=== PATIENT | male | born 1945 | race Caucasian/White ===

== ENCOUNTER 2019-03-14 16:39 | Emergency (ER) | payer OTHER ==
--- NOTE | 2019-03-14 17:01 | PDOC ---
History of Present Illness - General Chief Complaint: Respiratory Stated Complaint: FLU LIKE ILLNESS Time Seen by Provider: 03/14/19 16:46 History Source: Patient Exam Limitations: No Limitations - History of Present Illness Initial Comments: 03/14/19 16:55 HPI 73 YOM with h.o HTN, HLD, CAD s/p PCI, gout, arthritis presenting with nasal congestion and cough x 2-3 days, a/w dizziness, generalized weakness, subjective fevers/chills, sweats, body aches and nausea. has been taking tylenol, last dose about 2 hours ago; after antipyretics, he breaks out in a sweat, has not taken his temperature. +sick contacts, daughters with flu-like illness and may have contracted from them living with him and coming in close contact. Denies syncope, ear pain/sore throat, visual or hearing disturbances, chest pain , SOB, palpitation, V, D, abdominal pain, bladder and bowel problems, focal weakness/paresthesias, leg swelling/pain, rash. No travel. No new changes in medications. No suspicious food intake He did receive flu vaccine this season. Allergies: None Past Medical History: HTN, HLD, CAD s/p PCI, gout, arthritis PSH: PCI Social history: Lives with family. No tobacco, ETOH or drug use. Meds: as documented in EMR Family history: noncontributory Review of systems Constitutional: +subjective fevers and chills. +malaise, +sweats HEENT: +dizziness, +nasal congestion, no headache No visual/hearing disturbances. no ear pain/no sore throat. no neck pain CVS: no cp or syncope. Resp: no sob. + cough. Gastrointestinal: no abdominal pain, vomiting, diarrhea. +nausea MUSCULOSKELETAL: No joint pain and swelling. No neck or back pain. +myalgias. SKIN: no redness or skin changes, no discharge, no rash. No wounds. Hematologic: no easy bruising/bleeding. NEUROLOGIC: No headache, LOC or altered mental status. No weakness, numbness or tingling. Psych: no anxiety or depression Allergic/Immunologic: no allergies All other systems reviewed and negative, or as documented in HPI. Physical exam General: Well appearing, awake and alert, NAD. HEENT: NCAT, PERRL, EOMI, clear conjunctiva, anicteric, moist mucus membranes, clear oropharynx, no oral lesions.. Neck: neck supple, FROM Resp: CTAB, normal and even respirations, no respiratory distress CVS: RRR, no murmurs, 2+ peripheral pulses throughout, no peripheral edema Abdomen: soft, NTND, no rebound or guarding. Back: nontender, normal inspection and ROM MSK: no edema, SAHNI x4, ROM intact. No clubbing or cyanosis. normal bulk and tone. Extremities: no calf tenderness Neuro: alert, oriented appropriately; no focal neurologic deficits Psych: Calm and cooperative Skin: cool skin, moist. cap refill <2 sec, normal color, no rash or skin discoloration. 03/14/19 20:05 Past History - Past Medical History Allergies/Adverse Reactions: Allergies Allergy/AdvReac Type Severity Reaction Status Date / Time No Known Allergies Allergy Verified 03/14/19 16:45 Home Medications: Ambulatory Orders Allopurinol 300 mg PO DAILY PRN 03/14/19 Benzonatate [Tessalon Pearls -] 100 mg PO TID PRN #12 capsule 03/14/19 Metoprolol Succinate [Toprol Xl] 100 mg PO DAILY 03/14/19 Oseltamivir Phosphate [Tamiflu -] 75 mg PO BID #10 capsule 03/14/19 Rosuvastatin Calcium [Crestor] 10 mg PO DAILY 03/14/19 Verapamil HCl ER [Calan Sr] 240 mg PO DAILY 03/14/19 ED Treatment Course - RADIOLOGY Radiology Studies Ordered: Category Date Time Status CHEST PA & LAT [RAD] Stat Radiology 03/14/19 16:46 Ordered Radiograph Interpretation: 03/14/19 17:52 Chest Xray Interpreted by ED Physician: CXR (2 view): no acute abnormality: no infiltrates , bones appear intact and structures normal alignment, cardiac silhouette within normal limits. no free air under diaphragm, no pneumothorax. Medical Decision Making - Medical Decision Making 03/14/19 17:00 Vital Signs Temp Pulse Resp BP Pulse Ox 98.7 F 85 16 116/76 95 03/14/19 16:44 03/14/19 16:44 03/14/19 16:44 03/14/19 16:44 03/14/19 16:44 VS reviewed, wnl. afebrile, no tachy. normal sats/respirations no respiratory distress ddx, influenza, viral illness, bronchitis, URI, pleurisy doubt cardiac, no cp or sob breathing comfortably VS reviewed, wnl. no fever, normal sats. normotensive flu swab, likely milder sx after vaccination. cxr clear, no pna, pleural thickening, incidental and outpatient followup. given analgesia, oral hydration rx tessalon perles, suppportive care/measures, tea/teresa, lemon, honey. flu test positive, given time frame and risk factors, age >70, will rx tamiflu side effect profile discussed including GI side effects called over phone with results, rx sent over x 5 day course c/w supportive care measures, antipyretics, rest and hydration, tamiflu rx, close contact precautions. DC stable condition, return precautions. 03/14/19 20:02 03/14/19 20:04 Discharge - Discharge Information Problems reviewed: Yes Clinical Impression/Diagnosis: Influenza Upper respiratory infection Qualifiers: URI type: unspecified URI Qualified Code(s): J06.9 - Acute upper respiratory infection, unspecified Condition: Good Disposition: HOME - Admission No - Additional Discharge Information Prescriptions: Benzonatate [Tessalon Pearls -] 100 mg PO TID PRN #12 capsule PRN Reason: Cough Oseltamivir Phosphate [Tamiflu -] 75 mg PO BID #10 capsule - Follow up/Referral Referrals: Shelby Wsetfall MD [Primary Care Provider] - - Patient Discharge Instructions Patient Printed Discharge Instructions: DI for Viral Upper Respiratory Infection -- Adult, DI for Influenza -- Adult, DI for Viral Syndrome Additional Instructions: RESPIRATORY precautions salt water gargles, 1-2 spoonful of honey and warm lemon tea is appropriate as well for soothing qualities for sore throat/cough. minimize spread of infection given contagious nature, and cover your mouth and wash your hands adequately with soap and water. Stay well hydrated and rest. Cool air - walk around outdoors in the evening. May also try hot shower steam. This can alleviate the congestion and cough. You can also use Riccola - dual action with lemon/honey to soothe your throat and cough. May use the albuterol inhaler every 4-6 hours as needed for cough and breathing to clear up your airways. Return precautions include respiratory distress, difficulty breathing, cyanosis , chest pain, lethargy, confusion, dehydration, high fevers or pain. you will get a call with your flu results [phone] - Post Discharge Activity
[2019-03-14 17:18] VITALS: BP 116/76; PULSE 85; TEMP 98.7; BMI 27.3
== END 2019-03-14 19:00 | disposition home or self-care (01) ==
LOC: FER 16:39
DX: J11.1 Influenza due to unidentified influenza virus with other respiratory manifestations (principal); J06.9 Acute upper respiratory infection, unspecified
CPT/HCPCS: 71046-TC-FY; 87804; 99281-25

== ENCOUNTER 2021-10-20 13:46 | Inpatient (IN) | payer OTHER ==
[2021-10-20] MEDS ORDERED: ONDANSETRON 4 MG/2 ML VIAL IVPUSH ONE ×2 (14:19→20:00)
[2021-10-20] MEDS ORDERED: SODIUM CHLORIDE 0.9% 500 ML INFUS.BAG IV ONE (14:19)
[2021-10-20] MEDS ORDERED: ONDANSETRON 4 MG/2 ML VIAL ONE ×2 (14:23→20:01)
[2021-10-20 15:20] LABS: INR 1.09 (0.83-1.09); PROTHROMBIN TIME (PATIENT) 12.6 SEC (9.7-13.0)
[2021-10-20 15:22] LABS: ACTIVATED PTT 29.9 SECONDS (25.2-36.5); CALCIUM 8.5 mg/dL (8.5-10.1); MAGNESIUM 1.8 mg/dL (1.8-2.4)
[2021-10-20 15:23] LABS: BASO % 0.6 % (0-2.0); BLOOD UREA NITROGEN 20.9 mg/dL (7-18); EOS % 1.6 % (0-4.5); HEMOGLOBIN 11.2 GM/dL (11.7-16.9); LYMPH % 11.7 % (8-40); MCH 25.9 pg (25.7-33.7); MCHC 31.9 g/dl (32.0-35.9); MEAN CELL VOLUME 81.4 fl (80-96); MEAN PLT VOLUME 7.3 fl (7.5-11.1); MONO % 13.3 % (3.8-10.2); NEUT % 72.8 % (42.8-82.8); PLATELET COUNT 389 10^3/uL (134-434); RBC 4.31 M/mm3 (4.00-5.60); RDW 18.7 % (11.9-15.9); WHITE BLOOD COUNT 14.9 K/mm3 (4.0-10.0)
[2021-10-20 15:25] LABS: CREATININE 1.4 mg/dL (0.55-1.3)
[2021-10-20 15:27] LABS: BILIRUBIN,TOTAL 0.4 mg/dL (0.2-1)
[2021-10-20 17:24] LABS: CALCIUM 7.8 mg/dL (8.5-10.1); MAGNESIUM 1.9 mg/dL (1.8-2.4)
[2021-10-20 17:25] LABS: BLOOD UREA NITROGEN 21.6 mg/dL (7-18)
[2021-10-20 17:28] LABS: CREATININE 1.4 mg/dL (0.55-1.3)
[2021-10-20 17:29] LABS: URINE APPEARANCE CLEAR; URINE BILIRUBIN NEGATIVE (NEGATIVE); URINE COLOR YELLOW; URINE GLUCOSE (UA) NEGATIVE (NEGATIVE); URINE KETONE TRACE (NEGATIVE); URINE LEUK ESTERASE NEGATIVE (NEGATIVE); URINE NITRITE NEGATIVE (NEGATIVE); URINE PROTEIN NEGATIVE (NEGATIVE); URINE UROBILINOGEN 0.2 mg/dL (0.2-1.0)
[2021-10-20] MEDS ORDERED: PIPERACILLIN/TAZOB 4.5 GM 4.5 GM in DEXTROSE 5%-WATER 100 ML IVPB ONE (19:44)
[2021-10-20] MEDS ORDERED: PIPERACILLIN/TAZOB 4.5 GM 4.5 GM/100 ML BAG IVPB ONE (19:49)
[2021-10-20] MEDS ORDERED: ONDANSETRON 4 MG/2 ML VIAL IVPUSH PRN (22:23)
[2021-10-21] MEDS: SODIUM CHLORIDE 1,000 ML IV SCH ×3 (01:24→22:27)
[2021-10-21] MEDS: PIPERACILLIN/TAZOB 3.375 GM 3.375 GM in DEXTROSE 5%-WATER - 50 ML IVPB SCH ×2 (03:20→11:21)
[2021-10-21 09:48] LABS: HEMATOCRIT 27.7 % (35.4-49); HEMOGLOBIN 9.3 GM/dL (11.7-16.9); MCH 27.3 pg (25.7-33.7); MCHC 33.7 g/dl (32.0-35.9); MEAN CELL VOLUME 80.8 fl (80-96); MEAN PLT VOLUME 6.5 fl (7.5-11.1); PLATELET COUNT 323 10^3/uL (134-434); RBC 3.43 M/mm3 (4.00-5.60); RDW 18.8 % (11.9-15.9); WHITE BLOOD COUNT 9.6 K/mm3 (4.0-10.0)
[2021-10-21 09:54] LABS: RETICULOCYTES 1.44 % (0.5-1.5)
[2021-10-21 10:11] LABS: CALCIUM 7.6 mg/dL (8.5-10.1)
[2021-10-21 10:12] LABS: ALBUMIN 1.6 g/dl (3.4-5.0); BLOOD UREA NITROGEN 20.4 mg/dL (7-18); MAGNESIUM 1.9 mg/dL (1.8-2.4)
[2021-10-21 10:14] LABS: CREATININE 1.5 mg/dL (0.55-1.3)
[2021-10-21 10:15] LABS: PHOSPHOROUS 2.5 mg/dL (2.5-4.9)
[2021-10-21 10:16] LABS: BILIRUBIN,TOTAL 0.3 mg/dL (0.2-1); TOT PROT 4.8 g/dl (6.4-8.2)
[2021-10-21] MEDS: CEFTRIAXONE 1 GM in DEXTROSE 5%-WATER - 50 ML IVPB SCH (12:48)
[2021-10-21] MEDS ORDERED: IRON SUCROSE INJECTION 200 MG in SODIUM CHLORIDE 90 ML IVPB ONE (14:43)
[2021-10-21] MEDS ORDERED: PIPERACILLIN/TAZOB 3.375 GM 3.375 GM in DEXTROSE 5%-WATER - 50 ML IVPB SCH (15:00)
[2021-10-21] MEDS: ASPIRIN 81 MG CHEWABLE TABLETS PO SCH (17:36)
[2021-10-21] MEDS: ROSUVASTATIN CA 10 MG TABLET PO SCH (22:27)
[2021-10-22 10:09] LABS: BASO % 1.3 % (0-2.0); EOS % 11.1 % (0-4.5); HEMATOCRIT 28.4 % (35.4-49); HEMOGLOBIN 9.1 GM/dL (11.7-16.9); LYMPH % 16.4 % (8-40); MCH 26.3 pg (25.7-33.7); MCHC 32.1 g/dl (32.0-35.9); MEAN CELL VOLUME 81.8 fl (80-96); MEAN PLT VOLUME 7.1 fl (7.5-11.1); MONO % 19.2 % (3.8-10.2); PLATELET COUNT 288 10^3/uL (134-434); RBC 3.48 M/mm3 (4.00-5.60); RDW 18.7 % (11.9-15.9); WHITE BLOOD COUNT 5.9 K/mm3 (4.0-10.0)
[2021-10-22] MEDS ORDERED: ACETAMINOPHEN 1000 MG/100 ML BAG IVPB PRN (10:24)
[2021-10-22] MEDS: CEFTRIAXONE 1 GM in DEXTROSE 5%-WATER - 50 ML IVPB SCH (10:26)
[2021-10-22] MEDS: CYANOCOBALAMIN 1,000 MCG TABLET (FP) PO SCH (10:26)
[2021-10-22] MEDS: VERAPAMIL HCL 240 MG E.R. TABLET PO SCH (10:26)
[2021-10-22] MEDS: ASPIRIN 81 MG CHEWABLE TABLETS PO SCH (10:26)
[2021-10-22] MEDS: FAMOTIDINE 20 MG TABLET PO SCH (10:26)
[2021-10-22] MEDS ORDERED: IRON SUCROSE INJECTION 200 MG in SODIUM CHLORIDE 90 ML IVPB ONE (10:30)
[2021-10-22 10:37] LABS: BLOOD UREA NITROGEN 11.8 mg/dL (7-18)
[2021-10-22 10:40] LABS: CALCIUM 7.6 mg/dL (8.5-10.1); MAGNESIUM 1.9 mg/dL (1.8-2.4)
[2021-10-22 10:41] LABS: CREATININE 1.1 mg/dL (0.55-1.3); PHOSPHOROUS 2.2 mg/dL (2.5-4.9)
[2021-10-22 14:56] VITALS: BMI 24.4
[2021-10-22] MEDS ORDERED: POTASSIUM PHOSPHATE 15 MM in DEXTROSE 5%-WATER - 250 ML IVPB ONE (19:30)
[2021-10-22] MEDS: ROSUVASTATIN CA 10 MG TABLET PO SCH (22:00)
[2021-10-23 08:13] LABS: BASO % 0.9 % (0-2.0); EOS % 13.8 % (0-4.5); HEMATOCRIT 28.2 % (35.4-49); HEMOGLOBIN 8.9 GM/dL (11.7-16.9); LYMPH % 17.7 % (8-40); MCH 26.1 pg (25.7-33.7); MCHC 31.6 g/dl (32.0-35.9); MEAN CELL VOLUME 82.8 fl (80-96); MEAN PLT VOLUME 6.9 fl (7.5-11.1); MONO % 14.9 % (3.8-10.2); NEUT % 52.7 % (42.8-82.8); PLATELET COUNT 263 10^3/uL (134-434); RBC 3.41 M/mm3 (4.00-5.60); RDW 18.9 % (11.9-15.9)
[2021-10-23 08:34] LABS: CALCIUM 7.6 mg/dL (8.5-10.1)
[2021-10-23 08:35] LABS: BLOOD UREA NITROGEN 9.2 mg/dL (7-18); MAGNESIUM 1.8 mg/dL (1.8-2.4)
[2021-10-23 08:38] LABS: PHOSPHOROUS 2.4 mg/dL (2.5-4.9)
[2021-10-23] MEDS ORDERED: IRON SUCROSE INJECTION 200 MG in SODIUM CHLORIDE 90 ML IVPB ONE (08:55)
[2021-10-23] MEDS: ASPIRIN 81 MG CHEWABLE TABLETS PO SCH (10:25)
[2021-10-23] MEDS: CYANOCOBALAMIN 1,000 MCG TABLET (FP) PO SCH (10:25)
[2021-10-23] MEDS: FAMOTIDINE 20 MG TABLET PO SCH (10:25)
[2021-10-23] MEDS: VERAPAMIL HCL 240 MG E.R. TABLET PO SCH (10:25)
[2021-10-23] MEDS: POLYETHYLENE GLYCOL (HEALTHYLAX) 3350 17 GM PACKET PO SCH (10:25)
[2021-10-23] MEDS: CEFTRIAXONE 1 GM in DEXTROSE 5%-WATER - 50 ML IVPB SCH (11:24)
[2021-10-23] MEDS ORDERED: NAPH,MB-DB/K PH,MBDB POWDER PACKET PO ONE (16:43)
[2021-10-23] MEDS: ROSUVASTATIN CA 10 MG TABLET PO SCH (22:45)
[2021-10-24 08:06] LABS: CARCINOEMBRYONIC ANTIGEN 3.6 ng/mL (0.0-4.7)
[2021-10-24 10:27] LABS: BASO % 1.3 % (0-2.0); EOS % 8.9 % (0-4.5); HEMATOCRIT 31.4 % (35.4-49); HEMOGLOBIN 10.4 GM/dL (11.7-16.9); LYMPH % 12.7 % (8-40); MCH 26.8 pg (25.7-33.7); MEAN CELL VOLUME 81.1 fl (80-96); MEAN PLT VOLUME 6.7 fl (7.5-11.1); MONO % 12.4 % (3.8-10.2); NEUT % 64.7 % (42.8-82.8); PLATELET COUNT 302 10^3/uL (134-434); RBC 3.86 M/mm3 (4.00-5.60); RDW 18.5 % (11.9-15.9); WHITE BLOOD COUNT 9.9 K/mm3 (4.0-10.0)
[2021-10-24 10:39] LABS: CALCIUM 7.7 mg/dL (8.5-10.1)
[2021-10-24 10:40] LABS: BLOOD UREA NITROGEN 7.8 mg/dL (7-18); MAGNESIUM 1.9 mg/dL (1.8-2.4)
[2021-10-24 10:43] LABS: CREATININE 1.1 mg/dL (0.55-1.3)
[2021-10-24] MEDS: CYANOCOBALAMIN 1,000 MCG TABLET (FP) PO SCH (10:45)
[2021-10-24] MEDS: CEFTRIAXONE 1 GM in DEXTROSE 5%-WATER - 50 ML IVPB SCH (10:45)
[2021-10-24] MEDS: ASPIRIN 81 MG CHEWABLE TABLETS PO SCH (10:45)
[2021-10-24] MEDS: FAMOTIDINE 20 MG TABLET PO SCH (10:45)
[2021-10-24] MEDS: VERAPAMIL HCL 240 MG E.R. TABLET PO SCH (10:45)
[2021-10-24] MEDS: POLYETHYLENE GLYCOL (HEALTHYLAX) 3350 17 GM PACKET PO SCH (10:46)
[2021-10-24 12:51] VITALS: RESP 16
[2021-10-24 15:25] VITALS: BP 94/51; PULSE 57; TEMP 98.4
[2021-10-24] MEDS: POTASSIUM PHOSPHATE 30 MM in SODIUM CHLORIDE 500 ML IVPB ONE ×2 (16:28→17:42)
[2021-10-24] MEDS ORDERED: NAPH,MB-DB/K PH,MBDB POWDER PACKET PO ONE (17:04)
== END 2021-10-24 19:38 | disposition home or self-care (01) | DRG 392 ==
LOC: JER 13:46 → JERBED 20:26 → J8W 10-21 02:01
PROVIDERS: ADMIT Hospitalist; ATTEND Internal Medicine
DX: K57.92 Diverticulitis of intestine, part unspecified, without perforation or abscess without bleeding (principal); I25.10 Atherosclerotic heart disease of native coronary artery without angina pectoris; E78.5 Hyperlipidemia, unspecified; R63.4 Abnormal weight loss; Z68.24 Body mass index [BMI] 24.0-24.9, adult; E86.0 Dehydration; I10 Essential (primary) hypertension; M10.9 Gout, unspecified; K63.9 Disease of intestine, unspecified; D50.9 Iron deficiency anemia, unspecified; R11.2 Nausea with vomiting, unspecified; R16.0 Hepatomegaly, not elsewhere classified; Z95.5 Presence of coronary angioplasty implant and graft; I70.1 Atherosclerosis of renal artery; N28.9 Disorder of kidney and ureter, unspecified
CPT/HCPCS: 0241U-QW; 36415; 71045-TC-FY; 74019-TC-FY; 74177-TC; 80048; 80053; 81003; 82272; 82378; 82607; 82728; 82746; 83540; 83550; 83605; 83615; 83690; 83735; 84100; 85025; 85027; 85045; 85610; 85730; 86140; 86301; 87045; 87046; 87086; 87205; 87209; 87324; 87449; 93005; 93010; 99285-25; J1756

== ENCOUNTER 2021-10-31 14:03 | Emergency (ER) | payer SELFPAY ==
[2021-10-31 14:17] VITALS: RESP 18; TEMP 97.5; BMI 23.4
[2021-10-31] MEDS ORDERED: SODIUM CHLORIDE 0.9% 500 ML INFUS.BAG IV ONE (15:27)
[2021-10-31 17:43] LABS: BASO % 1.2 % (0-2.0); EOS % 6.6 % (0-4.5); HEMATOCRIT 33.5 % (35.4-49); HEMOGLOBIN 10.7 GM/dL (11.7-16.9); LYMPH % 17.9 % (8-40); MCH 26.9 pg (25.7-33.7); MCHC 31.9 g/dl (32.0-35.9); MEAN CELL VOLUME 84.3 fl (80-96); MEAN PLT VOLUME 7.4 fl (7.5-11.1); MONO % 10.1 % (3.8-10.2); NEUT % 64.2 % (42.8-82.8); PLATELET COUNT 485 10^3/uL (134-434); RBC 3.97 M/mm3 (4.00-5.60); RDW 21.6 % (11.9-15.9); WHITE BLOOD COUNT 8.1 K/mm3 (4.0-10.0)
[2021-10-31 17:54] LABS: BLOOD UREA NITROGEN 7.6 mg/dL (7-18); CALCIUM 8.6 mg/dL (8.5-10.1)
[2021-10-31 17:58] LABS: CREATININE 1.1 mg/dL (0.55-1.3)
[2021-10-31 17:59] LABS: BILIRUBIN,TOTAL 0.6 mg/dL (0.2-1); TOT PROT 5.9 g/dl (6.4-8.2)
[2021-10-31 18:07] LABS: ALBUMIN 2.2 g/dl (3.4-5.0)
[2021-10-31 19:15] VITALS: BP 140/68; PULSE 70
== END 2021-10-31 19:16 | disposition home or self-care (01) ==
LOC: JER 14:03
DX: R11.0 Nausea (principal)
CPT/HCPCS: 36415; 80053; 85025; 86850; 86900; 86901; 93005; 93010; 99283-25

== ENCOUNTER 2022-01-31 21:59 | Inpatient (IN) | payer OTHER ==
[2022-01-31] MEDS ORDERED: ACETAMINOPHEN 1000 MG/100 ML BAG IVPB ONE (23:05)
[2022-01-31] MEDS ORDERED: ACETAMINOPHEN INJECTION 100 ML IVPB ONE (23:11)
[2022-01-31 23:25] LABS: HEMOGLOBIN 10.3 GM/dL (11.7-16.9); MCH 27.6 pg (25.7-33.7); MCHC 31.2 g/dl (32.0-35.9); MEAN CELL VOLUME 88.7 fl (80-96); MEAN PLT VOLUME 7.1 fl (7.5-11.1); PLATELET COUNT 424 10^3/uL (134-434); RBC 3.72 M/mm3 (4.00-5.60); RDW 17.7 % (11.9-15.9); WHITE BLOOD COUNT 19.4 K/mm3 (4.0-10.0)
[2022-01-31 23:50] LABS: LACTIC ACID 5.3 mmol/L (0.4-2.0)
[2022-01-31] MEDS ORDERED: SODIUM CHLORIDE 0.9% 500 ML INFUS.BAG IV ONE (23:51)
[2022-01-31 23:53] LABS: BLOOD UREA NITROGEN 20.2 mg/dL (7-18); CALCIUM 8.1 mg/dL (8.5-10.1)
[2022-01-31] MEDS ORDERED: PIPERACILLIN/TAZOB 4.5 GM 4.5 GM in DEXTROSE 5%-WATER 100 ML IVPB ONE (23:55)
[2022-01-31 23:57] LABS: CREATININE 1.3 mg/dL (0.55-1.3)
[2022-01-31 23:58] LABS: BILIRUBIN,TOTAL 0.3 mg/dL (0.2-1); TOT PROT 5.4 g/dl (6.4-8.2)
[2022-02-01] MEDS ORDERED: PIPERACILLIN/TAZOB 4.5 GM 4.5 GM/100 ML BAG IVPB ONE (00:17)
[2022-02-01] MEDS ORDERED: SODIUM CHLORIDE 0.9% 1000 ML INFUS.BAG IV ONE (00:51)
[2022-02-01 01:35] LABS: HEMATOCRIT 28.1 % (35.4-49); HEMOGLOBIN 8.8 GM/dL (11.7-16.9); MCH 27.5 pg (25.7-33.7); MCHC 31.5 g/dl (32.0-35.9); MEAN CELL VOLUME 87.3 fl (80-96); MEAN PLT VOLUME 6.9 fl (7.5-11.1); PLATELET COUNT 318 10^3/uL (134-434); RBC 3.21 M/mm3 (4.00-5.60); RDW 17.2 % (11.9-15.9); WHITE BLOOD COUNT 18.9 K/mm3 (4.0-10.0)
[2022-02-01 01:36] LABS: INR 1.05 (0.83-1.09); PROTHROMBIN TIME (PATIENT) 12.1 SEC (9.7-13.0)
[2022-02-01 01:39] LABS: ACTIVATED PTT 23.3 SECONDS (25.2-36.5)
[2022-02-01 04:34] LABS: ANISOCYTOSIS 1+; MACROCYTOSIS 0; OVALOCYTE 2+; TEAR DROP CELLS 1+
[2022-02-01 04:50] LABS: ANISOCYTOSIS 2+; MACROCYTOSIS 0; OVALOCYTE 1+; TEAR DROP CELLS 1+
[2022-02-01 07:55] LABS: URINE APPEARANCE CLEAR; URINE BILIRUBIN NEGATIVE (NEGATIVE); URINE COLOR YELLOW; URINE GLUCOSE (UA) NEGATIVE (NEGATIVE); URINE KETONE NEGATIVE (NEGATIVE); URINE LEUK ESTERASE NEGATIVE (NEGATIVE); URINE NITRITE NEGATIVE (NEGATIVE); URINE PROTEIN NEGATIVE (NEGATIVE); URINE UROBILINOGEN 0.2 mg/dL (0.2-1.0)
[2022-02-01] MEDS ORDERED: CEFTRIAXONE 1 GM/50 ML BAG ONE (10:09)
[2022-02-01] MEDS ORDERED: PANTOPRAZOLE SODIUM 40 MG/100 ML BAG IVPB ONE (10:09)
[2022-02-01] MEDS: VERAPAMIL HCL 240 MG E.R. TABLET PO SCH (10:14)
[2022-02-01] MEDS: PANTOPRAZOLE SODIUM 40 MG VIAL IVPUSH SCH ×2 (10:20→21:59)
[2022-02-01] MEDS: CEFTRIAXONE 1 GM in DEXTROSE 5%-WATER - 50 ML IVPB SCH (12:05)
[2022-02-01 13:31] LABS: BASO % 0.3 % (0-2.0); EOS % 2.9 % (0-4.5); HEMATOCRIT 37.2 % (35.4-49); HEMOGLOBIN 11.9 GM/dL (11.7-16.9); LYMPH % 7.6 % (8-40); MCH 27.6 pg (25.7-33.7); MCHC 31.9 g/dl (32.0-35.9); MEAN CELL VOLUME 86.5 fl (80-96); MEAN PLT VOLUME 6.7 fl (7.5-11.1); MONO % 6.7 % (3.8-10.2); NEUT % 82.5 % (42.8-82.8); PLATELET COUNT 281 10^3/uL (134-434); RDW 16.2 % (11.9-15.9); WHITE BLOOD COUNT 12.2 K/mm3 (4.0-10.0)
[2022-02-01 13:39] LABS: INR 0.99 (0.83-1.09); PROTHROMBIN TIME (PATIENT) 11.4 SEC (9.7-13.0)
[2022-02-01 13:53] LABS: ALBUMIN 1.9 g/dl (3.4-5.0); BLOOD UREA NITROGEN 15.8 mg/dL (7-18); MAGNESIUM 1.8 mg/dL (1.8-2.4)
[2022-02-01 13:56] LABS: PHOSPHOROUS 2.5 mg/dL (2.5-4.9)
[2022-02-01 13:57] LABS: TOT PROT 4.8 g/dl (6.4-8.2)
[2022-02-01 13:58] LABS: BILIRUBIN,TOTAL 0.6 mg/dL (0.2-1)
[2022-02-01 14:05] LABS: CREATININE 1.1 mg/dL (0.55-1.3)
[2022-02-01] MEDS: MESALAMINE 800 MG TABLET.DR PO SCH ×2 (15:44→21:59)
[2022-02-01 16:06] LABS: BASO % 0.6 % (0-2.0); EOS % 2.6 % (0-4.5); HEMATOCRIT 33.9 % (35.4-49); LYMPH % 4.8 % (8-40); MCH 27.7 pg (25.7-33.7); MCHC 32.5 g/dl (32.0-35.9); MEAN CELL VOLUME 85.2 fl (80-96); MEAN PLT VOLUME 6.6 fl (7.5-11.1); PLATELET COUNT 267 10^3/uL (134-434); RBC 3.97 M/mm3 (4.00-5.60); RDW 16.1 % (11.9-15.9); WHITE BLOOD COUNT 12.5 K/mm3 (4.0-10.0)
[2022-02-01 17:23] VITALS: BMI 24.4
[2022-02-01 21:23] LABS: BASO % 0.6 % (0-2.0); EOS % 3.2 % (0-4.5); HEMATOCRIT 30.5 % (35.4-49); HEMOGLOBIN 10.2 GM/dL (11.7-16.9); LYMPH % 10.9 % (8-40); MCH 28.4 pg (25.7-33.7); MCHC 33.3 g/dl (32.0-35.9); MEAN CELL VOLUME 85.2 fl (80-96); MEAN PLT VOLUME 6.5 fl (7.5-11.1); MONO % 9.8 % (3.8-10.2); NEUT % 75.5 % (42.8-82.8); PLATELET COUNT 254 10^3/uL (134-434); RBC 3.58 M/mm3 (4.00-5.60); RDW 15.8 % (11.9-15.9); WHITE BLOOD COUNT 8.7 K/mm3 (4.0-10.0)
[2022-02-01] MEDS: ROSUVASTATIN CA 10 MG TABLET PO SCH (21:59)
[2022-02-02] MEDS: MESALAMINE 800 MG TABLET.DR PO SCH ×2 (07:00→15:20)
[2022-02-02] MEDS: VERAPAMIL HCL 240 MG E.R. TABLET PO SCH (09:57)
[2022-02-02] MEDS: CEFTRIAXONE 1 GM in DEXTROSE 5%-WATER - 50 ML IVPB SCH (09:57)
[2022-02-02] MEDS: PANTOPRAZOLE SODIUM 40 MG VIAL IVPUSH SCH (09:57)
[2022-02-02] MEDS ORDERED: predniSONE 10 MG TABLET (UD) PO SCH (10:00)
[2022-02-02] MEDS ORDERED: predniSONE 20 MG TABLET (UD) PO SCH (10:00)
[2022-02-02] MEDS: ALLOPURINOL 300 MG TABLET (FP) PO SCH (10:06)
[2022-02-02 10:30] LABS: HEMATOCRIT 31.2 % (35.4-49); HEMOGLOBIN 10.3 GM/dL (11.7-16.9); MCH 28.2 pg (25.7-33.7); MCHC 33.2 g/dl (32.0-35.9); MEAN CELL VOLUME 84.9 fl (80-96); MEAN PLT VOLUME 6.8 fl (7.5-11.1); PLATELET COUNT 245 10^3/uL (134-434); RBC 3.67 M/mm3 (4.00-5.60); RDW 16.2 % (11.9-15.9); WHITE BLOOD COUNT 7.9 K/mm3 (4.0-10.0)
[2022-02-02 10:34] LABS: INR 1.03 (0.83-1.09); PROTHROMBIN TIME (PATIENT) 11.9 SEC (9.7-13.0)
[2022-02-02 12:23] LABS: ALBUMIN 1.9 g/dl (3.4-5.0); BLOOD UREA NITROGEN 10.6 mg/dL (7-18); CALCIUM 8.2 mg/dL (8.5-10.1)
[2022-02-02 12:24] LABS: BILIRUBIN,TOTAL 0.3 mg/dL (0.2-1)
[2022-02-02 12:26] LABS: CREATININE 1.1 mg/dL (0.55-1.3)
[2022-02-02 12:27] LABS: TOT PROT 4.6 g/dl (6.4-8.2)
[2022-02-02 15:00] LABS: HEMATOCRIT 30.1 % (35.4-49); HEMOGLOBIN 9.9 GM/dL (11.7-16.9); MCH 27.9 pg (25.7-33.7); MCHC 32.8 g/dl (32.0-35.9); MEAN CELL VOLUME 85.2 fl (80-96); MEAN PLT VOLUME 6.7 fl (7.5-11.1); PLATELET COUNT 255 10^3/uL (134-434); RBC 3.54 M/mm3 (4.00-5.60); RDW 16.2 % (11.9-15.9); WHITE BLOOD COUNT 8.7 K/mm3 (4.0-10.0)
[2022-02-02] MEDS ORDERED: BISACODYL 5 MG TABLET.DR (FP) PO ONE (18:00)
[2022-02-03] MEDS: PANTOPRAZOLE SODIUM 40 MG VIAL IVPUSH SCH ×2 (00:22→11:54)
[2022-02-03] MEDS: ROSUVASTATIN CA 10 MG TABLET PO SCH ×2 (00:23→22:28)
[2022-02-03] MEDS: MESALAMINE 800 MG TABLET.DR PO SCH ×3 (00:23→22:28)
[2022-02-03] MEDS ORDERED: PEG 3350/NA SULF BICARB CL/KCL 4000 ML SOLN.RECON PO ONE (09:00)
[2022-02-03] MEDS ORDERED: LACTOBACILLUS ACIDOPHILUS 1 TABLET PO SCH (10:00)
[2022-02-03 10:06] LABS: CARCINOEMBRYONIC ANTIGEN 4.2 ng/mL (0.0-4.7)
[2022-02-03] MEDS: VERAPAMIL HCL 240 MG E.R. TABLET PO SCH (11:53)
[2022-02-03] MEDS: ALLOPURINOL 300 MG TABLET (FP) PO SCH (11:54)
[2022-02-03 13:16] LABS: HEMATOCRIT 26.6 % (35.4-49); HEMOGLOBIN 8.8 GM/dL (11.7-16.9); MCH 28.4 pg (25.7-33.7); MCHC 33.3 g/dl (32.0-35.9); MEAN CELL VOLUME 85.3 fl (80-96); MEAN PLT VOLUME 6.8 fl (7.5-11.1); PLATELET COUNT 275 10^3/uL (134-434); RBC 3.11 M/mm3 (4.00-5.60); RDW 15.9 % (11.9-15.9); WHITE BLOOD COUNT 9.7 K/mm3 (4.0-10.0)
[2022-02-03 13:29] LABS: ALBUMIN 1.8 g/dl (3.4-5.0); BLOOD UREA NITROGEN 10.3 mg/dL (7-18); CREATININE 1.3 mg/dL (0.55-1.3)
[2022-02-03 13:34] LABS: BILIRUBIN,TOTAL 0.3 mg/dL (0.2-1)
[2022-02-03 13:35] LABS: TOT PROT 4.3 g/dl (6.4-8.2)
[2022-02-03 15:39] LABS: BASO % 0.7 % (0-2.0); EOS % 3.5 % (0-4.5); HEMATOCRIT 25.9 % (35.4-49); HEMOGLOBIN 8.7 GM/dL (11.7-16.9); LYMPH % 12.2 % (8-40); MCH 28.6 pg (25.7-33.7); MCHC 33.4 g/dl (32.0-35.9); MEAN CELL VOLUME 85.4 fl (80-96); MEAN PLT VOLUME 6.5 fl (7.5-11.1); MONO % 7.5 % (3.8-10.2); NEUT % 76.1 % (42.8-82.8); PLATELET COUNT 264 10^3/uL (134-434); RBC 3.04 M/mm3 (4.00-5.60)
[2022-02-03] MEDS: D5-1/2NS+40 MEQ KCL - 40 MEQ/1,000 ML INFUS.BAG IV SCH (17:31)
[2022-02-03 20:41] LABS: BASO % 0.7 % (0-2.0); EOS % 5.1 % (0-4.5); HEMATOCRIT 25.3 % (35.4-49); HEMOGLOBIN 8.4 GM/dL (11.7-16.9); LYMPH % 17.1 % (8-40); MCH 28.6 pg (25.7-33.7); MCHC 33.4 g/dl (32.0-35.9); MEAN CELL VOLUME 85.6 fl (80-96); MEAN PLT VOLUME 6.3 fl (7.5-11.1); MONO % 9.3 % (3.8-10.2); NEUT % 67.8 % (42.8-82.8); PLATELET COUNT 300 10^3/uL (134-434); RBC 2.95 M/mm3 (4.00-5.60); WHITE BLOOD COUNT 9.2 K/mm3 (4.0-10.0)
[2022-02-03] MEDS ORDERED: MIDAZOLAM HCL 2 MG/2 ML SINGLE DOSE VIAL ONE (23:15)
[2022-02-03] MEDS ORDERED: FENTANYL CITRATE/PF 50 MCG/ML VIAL ONE (23:16)
[2022-02-03] MEDS ORDERED: FENTANYL CITRATE/PF 50 MCG/ML VIAL IVPUSH ONE (23:25)
[2022-02-03] MEDS ORDERED: MIDAZOLAM HCL 2 MG/2 ML SINGLE DOSE VIAL IVPUSH ONE (23:25)
[2022-02-04] MEDS: PANTOPRAZOLE SODIUM 40 MG VIAL IVPUSH SCH ×3 (02:35→21:11)
[2022-02-04 02:44] LABS: HEMATOCRIT 28.5 % (35.4-49); HEMOGLOBIN 9.5 GM/dL (11.7-16.9); MCH 28.5 pg (25.7-33.7); MCHC 33.5 g/dl (32.0-35.9); MEAN CELL VOLUME 85.2 fl (80-96); MEAN PLT VOLUME 6.3 fl (7.5-11.1); PLATELET COUNT 246 10^3/uL (134-434); RBC 3.34 M/mm3 (4.00-5.60); RDW 15.8 % (11.9-15.9); WHITE BLOOD COUNT 7.5 K/mm3 (4.0-10.0)
[2022-02-04] MEDS: MESALAMINE 800 MG TABLET.DR PO SCH ×3 (06:25→21:11)
[2022-02-04 07:41] LABS: BASO % 0.8 % (0-2.0); EOS % 7.9 % (0-4.5); HEMATOCRIT 29.4 % (35.4-49); HEMOGLOBIN 9.8 GM/dL (11.7-16.9); LYMPH % 17.5 % (8-40); MCH 28.3 pg (25.7-33.7); MCHC 33.3 g/dl (32.0-35.9); MEAN CELL VOLUME 84.8 fl (80-96); MEAN PLT VOLUME 6.7 fl (7.5-11.1); MONO % 8.2 % (3.8-10.2); NEUT % 65.6 % (42.8-82.8); PLATELET COUNT 282 10^3/uL (134-434); RBC 3.47 M/mm3 (4.00-5.60); RDW 16.1 % (11.9-15.9); WHITE BLOOD COUNT 9.5 K/mm3 (4.0-10.0)
[2022-02-04 07:46] LABS: INR 0.98 (0.83-1.09); PROTHROMBIN TIME (PATIENT) 11.3 SEC (9.7-13.0)
[2022-02-04 08:16] LABS: ALBUMIN 1.8 g/dl (3.4-5.0); CALCIUM 7.5 mg/dL (8.5-10.1)
[2022-02-04 08:17] LABS: MAGNESIUM 1.9 mg/dL (1.8-2.4)
[2022-02-04 08:19] LABS: CREATININE 1.2 mg/dL (0.55-1.3)
[2022-02-04 08:20] LABS: BILIRUBIN,TOTAL 0.4 mg/dL (0.2-1); TOT PROT 4.3 g/dl (6.4-8.2)
[2022-02-04] MEDS ORDERED: VERAPAMIL HCL 240 MG E.R. TABLET PO SCH (10:00)
[2022-02-04] MEDS ORDERED: ALLOPURINOL 300 MG TABLET (FP) PO SCH (10:00)
[2022-02-04] MEDS ORDERED: LACTOBACILLUS ACIDOPHILUS 1 TABLET PO SCH (10:00)
[2022-02-04] MEDS ORDERED: EPINEPHrine 1:10,000 (P-F SYR) 1 MG/10 ML DISP.SYRIN ONE ×2 (12:33→12:47)
[2022-02-04 12:55] LABS: N-TERMINAL BNP 1001.1 pg/ml (5-125)
[2022-02-04 15:55] VITALS: RESP 18
[2022-02-04 16:37] LABS: BASO % 0.4 % (0-2.0); EOS % 1.8 % (0-4.5); HEMATOCRIT 25.5 % (35.4-49); HEMOGLOBIN 8.2 GM/dL (11.7-16.9); MCH 27.9 pg (25.7-33.7); MCHC 32.3 g/dl (32.0-35.9); MEAN CELL VOLUME 86.3 fl (80-96); MEAN PLT VOLUME 6.9 fl (7.5-11.1); MONO % 5.2 % (3.8-10.2); NEUT % 83.6 % (42.8-82.8); PLATELET COUNT 254 10^3/uL (134-434); RBC 2.96 M/mm3 (4.00-5.60); RDW 16.3 % (11.9-15.9); WHITE BLOOD COUNT 13.3 K/mm3 (4.0-10.0)
[2022-02-04] MEDS: D5-1/2NS+40 MEQ KCL - 40 MEQ/1,000 ML INFUS.BAG IV SCH (17:11)
[2022-02-04 19:03] VITALS: BP 107/54; PULSE 69; TEMP 97.7
[2022-02-04] MEDS: ROSUVASTATIN CA 10 MG TABLET PO SCH (21:11)
== END 2022-02-04 22:19 | disposition short-term general hospital (02) | DRG 907 ==
LOC: JER 21:59 → JERBED 02-01 04:29 → J5S 02-01 18:30 → J6W 02-01 20:22 → J7W 02-02 04:27 → J4W 02-03 17:06
PROVIDERS: ADMIT Internal Medicine; ATTEND Internal Medicine
PROC: 30233N1 Transfusion of Nonautologous Red Blood Cells into Peripheral Vein, Percutaneous Approach (ICD-10-PCS; principal; 2022-02-01)
PROC: 0W3P8ZZ Control Bleeding in Gastrointestinal Tract, Via Natural or Artificial Opening Endoscopic (ICD-10-PCS; 2022-02-01)
PROC: 04LB3DZ Occlusion of Inferior Mesenteric Artery with Intraluminal Device, Percutaneous Approach (ICD-10-PCS; 2022-02-03)
DX: K91.840 Postprocedural hemorrhage of a digestive system organ or structure following a digestive system procedure (principal); I21.4 Non-ST elevation (NSTEMI) myocardial infarction; R78.81 Bacteremia; K92.2 Gastrointestinal hemorrhage, unspecified; D62 Acute posthemorrhagic anemia; B96.89 Other specified bacterial agents as the cause of diseases classified elsewhere; D12.6 Benign neoplasm of colon, unspecified; I10 Essential (primary) hypertension; K57.30 Diverticulosis of large intestine without perforation or abscess without bleeding; E78.00 Pure hypercholesterolemia, unspecified; J44.9 Chronic obstructive pulmonary disease, unspecified; I25.10 Atherosclerotic heart disease of native coronary artery without angina pectoris; Y83.8 Other surgical procedures as the cause of abnormal reaction of the patient, or of later complication, without mention of misadventure at the time of the procedure; M10.9 Gout, unspecified; Z95.5 Presence of coronary angioplasty implant and graft
CPT/HCPCS: 0241U-QW; 36415; 36430; 37244; 71045-TC-FY; 74174-TC; 80048; 80053; 80061; 81003; 82272; 82378; 82728; 83036; 83516; 83540; 83550; 83605; 83735; 83880; 84100; 84132; 84443; 84484; 85025; 85027; 85045; 85610; 85730; 86140; 86255; 86671; 86850; 86900; 86901; 86922; 87040; 87076; 87086; 93005; 93010; 93306-TC; 99285-25; C9803-CS; P9038; P9058; U0003; U0005

== ENCOUNTER 2022-06-15 18:26 | Inpatient (IN) | payer OTHER ==
[2022-06-15] MEDS ORDERED: SODIUM CHLORIDE 0.9% 500 ML INFUS.BAG IV ONE (19:02)
[2022-06-15 20:20] LABS: BASO % 0.1 % (0-2.0); EOS % 0.7 % (0-4.5); HEMATOCRIT 30.3 % (35.4-49); HEMOGLOBIN 9.3 GM/dL (11.7-16.9); LYMPH % 5.3 % (8-40); MCH 23.7 pg (25.7-33.7); MCHC 30.6 g/dl (32.0-35.9); MEAN CELL VOLUME 77.3 fl (80-96); MEAN PLT VOLUME 6.6 fl (7.5-11.1); MONO % 10.1 % (3.8-10.2); NEUT % 83.8 % (42.8-82.8); PLATELET COUNT 405 10^3/uL (134-434); RBC 3.91 M/mm3 (4.00-5.60); WHITE BLOOD COUNT 14.1 K/mm3 (4.0-10.0)
[2022-06-15 20:46] LABS: CALCIUM 8.5 mg/dL (8.5-10.1)
[2022-06-15 20:47] LABS: BLOOD UREA NITROGEN 26.1 mg/dL (7-18)
[2022-06-15 20:50] LABS: CREATININE 1.1 mg/dL (0.55-1.3)
[2022-06-15 20:51] LABS: BILIRUBIN,TOTAL 0.2 mg/dL (0.2-1); TOT PROT 5.4 g/dl (6.4-8.2)
[2022-06-15 20:56] LABS: LACTIC ACID 2.7 mmol/L (0.4-2.0)
[2022-06-15 22:12] LABS: INR 1.05 (0.83-1.09); PROTHROMBIN TIME (PATIENT) 12.2 SEC (9.7-13.0)
[2022-06-15 22:15] LABS: ACTIVATED PTT 24.3 SECONDS (25.2-36.5)
[2022-06-16 01:52] LABS: BASO % 0.1 % (0-2.0); HEMATOCRIT 31.3 % (35.4-49); HEMOGLOBIN 9.9 GM/dL (11.7-16.9); LYMPH % 6.1 % (8-40); MCHC 31.6 g/dl (32.0-35.9); MEAN PLT VOLUME 6.1 fl (7.5-11.1); MONO % 4.4 % (3.8-10.2); NEUT % 89.4 % (42.8-82.8); PLATELET COUNT 435 10^3/uL (134-434); RBC 4.12 M/mm3 (4.00-5.60); RDW 19.6 % (11.9-15.9); WHITE BLOOD COUNT 16.7 K/mm3 (4.0-10.0)
[2022-06-16 02:22] VITALS: RESP 18; BMI 23.1
[2022-06-16] MEDS: LACTATED RINGERS SOLUTION 1,000 ML IV SCH ×3 (04:31→22:53)
[2022-06-16 09:02] LABS: URINE APPEARANCE CLEAR; URINE BILIRUBIN NEGATIVE (NEGATIVE); URINE COLOR YELLOW; URINE GLUCOSE (UA) NEGATIVE (NEGATIVE); URINE KETONE NEGATIVE (NEGATIVE)
[2022-06-16 09:03] LABS: URINE LEUK ESTERASE NEGATIVE (NEGATIVE); URINE NITRITE NEGATIVE (NEGATIVE); URINE PROTEIN NEGATIVE (NEGATIVE); URINE UROBILINOGEN 0.2 mg/dL (0.2-1.0)
[2022-06-16] MEDS ORDERED: ENOXAPARIN NA (PORCINE) 40 MG/0.4 ML DISP.SYRIN SQ SCH (10:00)
[2022-06-16 10:01] LABS: BASO % 0.3 % (0-2.0); EOS % 0.1 % (0-4.5); HEMATOCRIT 27.8 % (35.4-49); HEMOGLOBIN 8.9 GM/dL (11.7-16.9); LYMPH % 7.9 % (8-40); MCH 24.1 pg (25.7-33.7); MCHC 31.9 g/dl (32.0-35.9); MEAN CELL VOLUME 75.5 fl (80-96); MEAN PLT VOLUME 6.7 fl (7.5-11.1); MONO % 6.9 % (3.8-10.2); NEUT % 84.8 % (42.8-82.8); PLATELET COUNT 438 10^3/uL (134-434); RBC 3.67 M/mm3 (4.00-5.60); RDW 19.2 % (11.9-15.9); WHITE BLOOD COUNT 14.3 K/mm3 (4.0-10.0)
[2022-06-16 10:29] LABS: CALCIUM 8.2 mg/dL (8.5-10.1)
[2022-06-16 10:30] LABS: ALBUMIN 1.8 g/dl (3.4-5.0); BLOOD UREA NITROGEN 24.8 mg/dL (7-18); MAGNESIUM 1.9 mg/dL (1.8-2.4)
[2022-06-16 10:32] LABS: PHOSPHOROUS 3.4 mg/dL (2.5-4.9)
[2022-06-16 10:33] LABS: CREATININE 1.2 mg/dL (0.55-1.3)
[2022-06-16 10:34] LABS: BILIRUBIN,TOTAL 0.5 mg/dL (0.2-1); TOT PROT 4.9 g/dl (6.4-8.2)
[2022-06-16] MEDS: BUDESONIDE/FORMETEROL FUMARATE 160/4.5 mcg INHALER IH SCH ×3 (10:35→23:00)
[2022-06-16] MEDS: ALLOPURINOL 300 MG TABLET (FP) PO SCH ×2 (10:36→10:44)
[2022-06-16] MEDS: CYANOCOBALAMIN 1,000 MCG TABLET (FP) PO SCH ×2 (10:36→10:44)
[2022-06-16] MEDS: PIPERACILLIN/TAZOB 3.375 GM 3.375 GM in DEXTROSE 5%-WATER - 50 ML IVPB SCH ×3 (10:54→14:00)
[2022-06-16] MEDS: VANCOMYCIN 250 MG/5 ML ORAL SOLUTION PO SCH ×3 (13:11→23:00)
[2022-06-16] MEDS: ACETAMINOPHEN 325 MG TABLET (FP) PO PRN (15:13)
[2022-06-17] MEDS: PIPERACILLIN/TAZOB 3.375 GM 3.375 GM in DEXTROSE 5%-WATER - 50 ML IVPB SCH ×3 (01:16→19:19)
[2022-06-17] MEDS ORDERED: PIPERACILLIN/TAZOB 3.375 GM 3.375 GM in DEXTROSE 5%-WATER - 50 ML IVPB SCH (02:00)
[2022-06-17] MEDS: VANCOMYCIN 250 MG/5 ML ORAL SOLUTION PO SCH ×3 (05:24→17:43)
[2022-06-17 08:23] LABS: BASO % 0.4 % (0-2.0); EOS % 2.6 % (0-4.5); HEMATOCRIT 27.4 % (35.4-49); HEMOGLOBIN 8.7 GM/dL (11.7-16.9); LYMPH % 20.1 % (8-40); MCHC 31.9 g/dl (32.0-35.9); MEAN CELL VOLUME 75.2 fl (80-96); MEAN PLT VOLUME 5.9 fl (7.5-11.1); MONO % 11.8 % (3.8-10.2); NEUT % 65.1 % (42.8-82.8); PLATELET COUNT 397 10^3/uL (134-434); RBC 3.64 M/mm3 (4.00-5.60); RDW 19.5 % (11.9-15.9); WHITE BLOOD COUNT 7.9 K/mm3 (4.0-10.0)
[2022-06-17 08:47] LABS: ALBUMIN 1.7 g/dl (3.4-5.0); BLOOD UREA NITROGEN 21.3 mg/dL (7-18); CALCIUM 7.5 mg/dL (8.5-10.1); MAGNESIUM 1.7 mg/dL (1.8-2.4)
[2022-06-17 08:51] LABS: TOT PROT 4.8 g/dl (6.4-8.2)
[2022-06-17 08:52] LABS: IRON SERUM 11 ug/dL (50-175); TOTAL IRON BINDING CAPACITY 166 ug/dL (250-450)
[2022-06-17 08:54] LABS: BILIRUBIN,TOTAL 0.9 mg/dL (0.2-1); CREATININE 1.1 mg/dL (0.55-1.3); PHOSPHOROUS 2.4 mg/dL (2.5-4.9)
[2022-06-17] MEDS: CYANOCOBALAMIN 1,000 MCG TABLET (FP) PO SCH (09:56)
[2022-06-17] MEDS ORDERED: CLOPIDOGREL BISULFATE 75 MG TABLET (FP) PO SCH (10:00)
[2022-06-17] MEDS ORDERED: LOSARTAN POTASSIUM 50 MG TABLET PO SCH (10:00)
[2022-06-17] MEDS: ACETAMINOPHEN 325 MG TABLET (FP) PO PRN ×2 (10:12→22:09)
[2022-06-17] MEDS: BUDESONIDE/FORMETEROL FUMARATE 160/4.5 mcg INHALER IH SCH ×2 (10:15→22:09)
[2022-06-17] MEDS: CEFTRIAXONE 1 GM in DEXTROSE 5%-WATER - 50 ML IVPB SCH (14:39)
[2022-06-18] MEDS: VANCOMYCIN 250 MG/5 ML ORAL SOLUTION PO SCH ×5 (00:37→23:33)
[2022-06-18 08:24] LABS: BASO % 0.5 % (0-2.0); EOS % 6.6 % (0-4.5); HEMATOCRIT 26.6 % (35.4-49); HEMOGLOBIN 8.3 GM/dL (11.7-16.9); LYMPH % 27.3 % (8-40); MCH 23.6 pg (25.7-33.7); MCHC 31.2 g/dl (32.0-35.9); MEAN CELL VOLUME 75.7 fl (80-96); MEAN PLT VOLUME 6.1 fl (7.5-11.1); MONO % 14.1 % (3.8-10.2); NEUT % 51.5 % (42.8-82.8); PLATELET COUNT 320 10^3/uL (134-434); RBC 3.52 M/mm3 (4.00-5.60); RDW 19.1 % (11.9-15.9); WHITE BLOOD COUNT 5.3 K/mm3 (4.0-10.0)
[2022-06-18 08:40] LABS: CALCIUM 7.4 mg/dL (8.5-10.1)
[2022-06-18 08:41] LABS: BLOOD UREA NITROGEN 17.6 mg/dL (7-18); MAGNESIUM 1.8 mg/dL (1.8-2.4)
[2022-06-18 08:44] LABS: PHOSPHOROUS 2.8 mg/dL (2.5-4.9)
[2022-06-18] MEDS: PIPERACILLIN/TAZOB 3.375 GM 3.375 GM in DEXTROSE 5%-WATER - 50 ML IVPB SCH (10:28)
[2022-06-18] MEDS: BUDESONIDE/FORMETEROL FUMARATE 160/4.5 mcg INHALER IH SCH ×2 (10:49→21:22)
[2022-06-18] MEDS: CEFTRIAXONE 1 GM in DEXTROSE 5%-WATER - 50 ML IVPB SCH (10:49)
[2022-06-18] MEDS: POLYETHYLENE GLYCOL (HEALTHYLAX) 3350 17 GM PACKET PO SCH ×2 (10:49→21:24)
[2022-06-18] MEDS: CYANOCOBALAMIN 1,000 MCG TABLET (FP) PO SCH (10:50)
[2022-06-18] MEDS: ACETAMINOPHEN 325 MG TABLET (FP) PO PRN (19:04)
[2022-06-19] MEDS: VANCOMYCIN 250 MG/5 ML ORAL SOLUTION PO SCH ×2 (05:28→11:39)
[2022-06-19 07:52] LABS: BASO % 0.8 % (0-2.0); EOS % 5.7 % (0-4.5); HEMATOCRIT 25.5 % (35.4-49); HEMOGLOBIN 8.4 GM/dL (11.7-16.9); LYMPH % 22.4 % (8-40); MCH 24.8 pg (25.7-33.7); MEAN PLT VOLUME 6.8 fl (7.5-11.1); MONO % 11.5 % (3.8-10.2); NEUT % 59.6 % (42.8-82.8); PLATELET COUNT 340 10^3/uL (134-434); RDW 19.1 % (11.9-15.9)
[2022-06-19 08:18] LABS: ALBUMIN 1.6 g/dl (3.4-5.0); CALCIUM 7.9 mg/dL (8.5-10.1)
[2022-06-19 08:19] LABS: MAGNESIUM 1.9 mg/dL (1.8-2.4)
[2022-06-19 08:21] LABS: CREATININE 0.9 mg/dL (0.55-1.3)
[2022-06-19 08:22] LABS: PHOSPHOROUS 2.2 mg/dL (2.5-4.9)
[2022-06-19 08:23] LABS: BILIRUBIN,TOTAL 0.3 mg/dL (0.2-1); TOT PROT 4.6 g/dl (6.4-8.2)
[2022-06-19] MEDS ORDERED: FAMOTIDINE 20 MG TABLET PO SCH (10:00)
[2022-06-19] MEDS: CEFTRIAXONE 1 GM in DEXTROSE 5%-WATER - 50 ML IVPB SCH (10:09)
[2022-06-19] MEDS: CYANOCOBALAMIN 1,000 MCG TABLET (FP) PO SCH (10:09)
[2022-06-19] MEDS: BUDESONIDE/FORMETEROL FUMARATE 160/4.5 mcg INHALER IH SCH (10:12)
[2022-06-19] MEDS: POLYETHYLENE GLYCOL (HEALTHYLAX) 3350 17 GM PACKET PO SCH ×3 (10:14→13:56)
[2022-06-19 12:14] VITALS: BP 146/92; PULSE 102; TEMP 98.7
[2022-06-19] MEDS ORDERED: LOSARTAN POTASSIUM 25 MG TABLET PO SCH (12:45)
[2022-06-19] MEDS ORDERED: NAPH,MB-DB/K PH,MBDB POWDER PACKET PO ONE (14:20)
== END 2022-06-19 16:55 | disposition home or self-care (01) | DRG 372 ==
LOC: JER 18:26 → JERBED 21:34 → OBSVTOIN 21:34 → J7W 06-16 01:37
PROVIDERS: ADMIT Internal Medicine; ATTEND Internal Medicine
DX: A04.72 Enterocolitis due to Clostridium difficile, not specified as recurrent (principal); I50.22 Chronic systolic (congestive) heart failure; R78.81 Bacteremia; I25.10 Atherosclerotic heart disease of native coronary artery without angina pectoris; J44.9 Chronic obstructive pulmonary disease, unspecified; E86.0 Dehydration; E78.5 Hyperlipidemia, unspecified; M10.9 Gout, unspecified; D12.6 Benign neoplasm of colon, unspecified; D50.9 Iron deficiency anemia, unspecified; I95.9 Hypotension, unspecified; K57.90 Diverticulosis of intestine, part unspecified, without perforation or abscess without bleeding; K63.89 Other specified diseases of intestine; R73.03 Prediabetes; I11.0 Hypertensive heart disease with heart failure; R19.7 Diarrhea, unspecified; Z80.0 Family history of malignant neoplasm of digestive organs; Z95.5 Presence of coronary angioplasty implant and graft
CPT/HCPCS: 36415; 74019-TC-FY; 74174-TC; 80048; 80053; 81003; 82272; 82728; 83540; 83550; 83605; 83690; 83735; 84100; 84484; 85025; 85610; 85730; 86850; 86900; 86901; 87040; 87045; 87046; 87186; 87324; 87449; 87493; 93005; 93010; 99285-25; C9803-CS; U0003; U0005

== ENCOUNTER 2022-09-13 18:19 | Inpatient (IN) | payer OTHER ==
[2022-09-13] MEDS ORDERED: SODIUM CHLORIDE 0.9% 500 ML INFUS.BAG IV ONE (19:54)
[2022-09-13 20:17] LABS: BASO % 0.8 % (0-2.0); EOS % 0.6 % (0-4.5); HEMATOCRIT 42.9 % (35.4-49); HEMOGLOBIN 13.3 GM/dL (11.7-16.9); LYMPH % 20.9 % (8-40); MCH 26.5 pg (25.7-33.7); MEAN CELL VOLUME 85.3 fl (80-96); MEAN PLT VOLUME 8.9 fl (7.5-11.1); MONO % 7.4 % (3.8-10.2); NEUT % 70.3 % (42.8-82.8); PLATELET COUNT 316 10^3/uL (134-434); RBC 5.03 M/mm3 (4.00-5.60); RDW 20.7 % (11.9-15.9); WHITE BLOOD COUNT 9.3 K/mm3 (4.0-10.0)
[2022-09-13 20:43] LABS: ANISOCYTOSIS 1+; MACROCYTOSIS 0
[2022-09-13 20:56] LABS: INR 1.02 (0.83-1.09); PROTHROMBIN TIME (PATIENT) 11.8 SEC (9.7-13.0)
[2022-09-13 20:58] LABS: ACTIVATED PTT 26.7 SECONDS (25.2-36.5)
[2022-09-13 21:23] LABS: CHLORIDE 111 mmol/L (98-107); SODIUM 137 mmol/L (136-145)
[2022-09-13 21:25] LABS: CALCIUM 9.5 mg/dL (8.5-10.1)
[2022-09-13 21:26] LABS: ALBUMIN 3.1 g/dl (3.4-5.0); BLOOD UREA NITROGEN 92.2 mg/dL (7-18); CO2 18 mmol/L (21-32); GLUCOSE,RANDOM 82 mg/dL (74-106); MAGNESIUM 2.2 mg/dL (1.8-2.4)
[2022-09-13 21:29] LABS: CREATININE 3.3 mg/dL (0.55-1.3); SGOT/AST 23 U/L (15-37); SGPT/ALT 27 U/L (13-61)
[2022-09-13 21:30] LABS: BILIRUBIN,TOTAL 0.4 mg/dL (0.2-1); TOT PROT 7.5 g/dl (6.4-8.2)
[2022-09-13 21:32] LABS: ALK PHOS 87 U/L (45-117)
[2022-09-13 21:34] LABS: N-TERMINAL BNP 1323.9 pg/ml (5-450)
[2022-09-13] MEDS ORDERED: FOLIC ACID INJECTION - 1 MG, THIAMINE HCL 100 MG, MULTIVIT INJECTION ADULT 10 ML in SOD... IVPB ONE (21:35)
[2022-09-13 21:58] LABS: ANION GAP 9 MMOL/L (8-16); POTASSIUM 7.1 mmol/L (3.5-5.1)
[2022-09-13 22:55] LABS: BLOOD UREA NITROGEN 93.5 mg/dL (7-18); CALCIUM 9.4 mg/dL (8.5-10.1)
[2022-09-13 22:59] LABS: CREATININE 3.4 mg/dL (0.55-1.3)
[2022-09-13] MEDS ORDERED: SODIUM BICARBONATE 8.4% 50 MEQ/50 ML DISP.SYRIN IVPUSH ONE (23:23)
[2022-09-13] MEDS ORDERED: CALCIUM GLUCONATE 10% - 1,000 MG/10 ML VIAL IVPUSH ONE (23:23)
[2022-09-13] MEDS ORDERED: DEXTROSE 50%-WATER - 25 GM/50 ML VIAL IVPUSH ONE (23:24)
[2022-09-13] MEDS ORDERED: INSULIN REGULAR HUMAN 100 UNITS/ML *VIAL IVPUSH ONE (23:25)
[2022-09-13] MEDS ORDERED: SODIUM ZIRCONIUM CYCLOSILICATE (LOKELMA) 5 GM PACKET ONE (23:49)
[2022-09-13] MEDS ORDERED: DEXTROSE 50%-WATER 25 GM/50 ML DISP.SYRIN ONE (23:50)
[2022-09-13] MEDS ORDERED: CALCIUM GLUC IN NACL, ISO-OSM 1 GM/50 ML BAG IVPB ONE (23:50)
[2022-09-14] MEDS ORDERED: MELATONIN 5 MG TABLETS PO ONE (00:35)
[2022-09-14] MEDS ORDERED: MELATONIN 5 MG TABLETS PO PRN ×2 (00:36→23:34)
[2022-09-14] MEDS: HEPARIN NA (PORCINE) 5,000 UNITS/ML 1ML VIAL SQ SCH ×3 (06:22→21:51)
[2022-09-14] MEDS ORDERED: HEPARIN NA (PORCINE) 5,000 UNITS/ML 1ML VIAL ONE ×3 (06:29→21:47)
[2022-09-14 09:09] LABS: EPI CELLS 3 /uL (0-25.1); HYALINE CASTS 1 /uL (0-3.1); URINE APPEARANCE CLEAR; URINE BACTERIA 0 /uL (0-1359); URINE BILIRUBIN NEGATIVE (NEGATIVE); URINE COLOR YELLOW; URINE GLUCOSE (UA) NEGATIVE (NEGATIVE); URINE KETONE NEGATIVE (NEGATIVE); URINE LEUK ESTERASE TRACE (NEGATIVE); URINE NITRITE NEGATIVE (NEGATIVE); URINE PROTEIN NEGATIVE (NEGATIVE); URINE RBC 19 /uL (0-23.9); URINE UROBILINOGEN 0.2 mg/dL (0.2-1.0); URINE WBC 18 /uL (0-25.8)
[2022-09-14] MEDS ORDERED: ASPIRIN 81 MG CHEWABLE TABLETS ONE (09:25)
[2022-09-14] MEDS ORDERED: ASPIRIN COATED 81 MG TABLET.EC PO SCH (10:00)
[2022-09-14] MEDS ORDERED: SODIUM CHLORIDE 1,000 ML IV SCH ×2 (10:30→17:55)
[2022-09-14] MEDS ORDERED: SODIUM ZIRCONIUM CYCLOSILICATE (LOKELMA) 5 GM PACKET PO ONE ×3 (10:30→23:34)
[2022-09-14 10:36] LABS: BASO % 1.1 % (0-2.0); EOS % 2.9 % (0-4.5); HEMATOCRIT 37.1 % (35.4-49); HEMOGLOBIN 11.6 GM/dL (11.7-16.9); LYMPH % 21.8 % (8-40); MCH 26.5 pg (25.7-33.7); MCHC 31.4 g/dl (32.0-35.9); MEAN CELL VOLUME 84.3 fl (80-96); MEAN PLT VOLUME 8.6 fl (7.5-11.1); MONO % 10.2 % (3.8-10.2); PLATELET COUNT 266 10^3/uL (134-434); RDW 20.4 % (11.9-15.9); WHITE BLOOD COUNT 7.2 K/mm3 (4.0-10.0)
[2022-09-14 10:55] LABS: POTASSIUM 4.8 mmol/L (3.5-5.1)
[2022-09-14 10:57] LABS: BLOOD UREA NITROGEN 86.5 mg/dL (7-18); CALCIUM 8.7 mg/dL (8.5-10.1); MAGNESIUM 1.9 mg/dL (1.8-2.4)
[2022-09-14 10:58] LABS: ALBUMIN 2.8 g/dl (3.4-5.0)
[2022-09-14 11:00] LABS: PHOSPHOROUS 4.4 mg/dL (2.5-4.9)
[2022-09-14 11:01] LABS: CREATININE 2.7 mg/dL (0.55-1.3)
[2022-09-14 11:02] LABS: BILIRUBIN,TOTAL 0.3 mg/dL (0.2-1); TOT PROT 6.5 g/dl (6.4-8.2)
[2022-09-14] MEDS: SODIUM ZIRCONIUM CYCLOSILICATE (LOKELMA) 5 GM PACKET PO SCH ×2 (11:10→21:52)
[2022-09-14] MEDS ORDERED: ONDANSETRON 4 MG/2 ML VIAL ONE (17:52)
[2022-09-14] MEDS: ONDANSETRON 4 MG/2 ML VIAL IVPB PRN (18:02)
[2022-09-15] MEDS: HEPARIN NA (PORCINE) 5,000 UNITS/ML 1ML VIAL SQ SCH ×3 (05:43→21:32)
[2022-09-15 09:52] LABS: BASO % 0.7 % (0-2.0); EOS % 3.6 % (0-4.5); HEMATOCRIT 35.6 % (35.4-49); HEMOGLOBIN 11.3 GM/dL (11.7-16.9); LYMPH % 15.7 % (8-40); MCH 26.9 pg (25.7-33.7); MCHC 31.7 g/dl (32.0-35.9); MEAN CELL VOLUME 84.9 fl (80-96); MEAN PLT VOLUME 9.1 fl (7.5-11.1); MONO % 9.3 % (3.8-10.2); NEUT % 70.7 % (42.8-82.8); PLATELET COUNT 244 10^3/uL (134-434); RDW 20.2 % (11.9-15.9); WHITE BLOOD COUNT 7.3 K/mm3 (4.0-10.0)
[2022-09-15 09:57] LABS: POTASSIUM 4.7 mmol/L (3.5-5.1)
[2022-09-15 10:12] LABS: CALCIUM 9.2 mg/dL (8.5-10.1)
[2022-09-15 10:13] LABS: ALBUMIN 2.7 g/dl (3.4-5.0); BLOOD UREA NITROGEN 62.5 mg/dL (7-18); MAGNESIUM 1.8 mg/dL (1.8-2.4)
[2022-09-15 10:16] LABS: CREATININE 1.8 mg/dL (0.55-1.3)
[2022-09-15 10:17] LABS: BILIRUBIN,TOTAL 0.3 mg/dL (0.2-1); TOT PROT 6.4 g/dl (6.4-8.2)
[2022-09-15] MEDS: ASPIRIN COATED 81 MG TABLET.EC PO SCH (10:23)
[2022-09-15] MEDS: metoPROLOL SUCCINATE 25 MG TAB.SR.24H (FP) PO SCH (10:23)
[2022-09-15] MEDS: SODIUM CHLORIDE 1,000 ML IV SCH (10:32)
[2022-09-15] MEDS: ONDANSETRON 4 MG/2 ML VIAL IVPB PRN (13:27)
[2022-09-15 13:56] VITALS: BMI 23.2
[2022-09-15 20:03] VITALS: RESP 18
[2022-09-15] MEDS ORDERED: SIMETHICONE 80 MG TAB.CHEW (FP) PO PRN (20:54)
[2022-09-15] MEDS ORDERED: ONDANSETRON 4 MG/2 ML VIAL IVPUSH PRN (20:55)
[2022-09-15] MEDS ORDERED: MIRTAZAPINE 15 MG TABLET (FP) PO SCH (22:00)
[2022-09-16] MEDS ORDERED: ACETAMINOPHEN 1000 MG/100 ML BAG IVPB PRN (00:27)
[2022-09-16] MEDS: HEPARIN NA (PORCINE) 5,000 UNITS/ML 1ML VIAL SQ SCH ×2 (06:45→13:37)
[2022-09-16] MEDS: metoPROLOL SUCCINATE 25 MG TAB.SR.24H (FP) PO SCH (09:27)
[2022-09-16] MEDS: ASPIRIN COATED 81 MG TABLET.EC PO SCH (09:27)
[2022-09-16] MEDS: SODIUM CHLORIDE 1,000 ML IV SCH (09:28)
[2022-09-16 10:18] LABS: HEMATOCRIT 34.4 % (35.4-49); HEMOGLOBIN 10.9 GM/dL (11.7-16.9); MCHC 31.6 g/dl (32.0-35.9); MEAN CELL VOLUME 85.6 fl (80-96); MEAN PLT VOLUME 8.7 fl (7.5-11.1); PLATELET COUNT 215 10^3/uL (134-434); RBC 4.01 M/mm3 (4.00-5.60); RDW 20.9 % (11.9-15.9); WHITE BLOOD COUNT 5.3 K/mm3 (4.0-10.0)
[2022-09-16 10:44] LABS: POTASSIUM 4.7 mmol/L (3.5-5.1)
[2022-09-16 10:48] LABS: BLOOD UREA NITROGEN 39.4 mg/dL (7-18); CALCIUM 8.9 mg/dL (8.5-10.1); MAGNESIUM 1.7 mg/dL (1.8-2.4)
[2022-09-16 10:52] LABS: CREATININE 1.5 mg/dL (0.55-1.3); PHOSPHOROUS 2.8 mg/dL (2.5-4.9)
[2022-09-16] MEDS ORDERED: MAGNESIUM OXIDE 400 MG TABLET (FP) PO ONE (11:09)
[2022-09-16] MEDS ORDERED: MAGNESIUM SULFATE IN WATER 2 GM/50 ML IVPB IVPB ONE (11:15)
[2022-09-16 18:39] VITALS: BP 107/58; PULSE 93; TEMP 98.7
== END 2022-09-16 18:44 | disposition home or self-care (01) | DRG 683 ==
LOC: JER 18:19 → JERBED 23:26 → J5S 09-14 23:33
PROVIDERS: ADMIT Internal Medicine
DX: N17.9 Acute kidney failure, unspecified (principal); I13.0 Hypertensive heart and chronic kidney disease with heart failure and stage 1 through stage 4 chronic kidney disease, or unspecified chronic kidney disease; I50.22 Chronic systolic (congestive) heart failure; I25.10 Atherosclerotic heart disease of native coronary artery without angina pectoris; E78.5 Hyperlipidemia, unspecified; J44.9 Chronic obstructive pulmonary disease, unspecified; R73.03 Prediabetes; M10.9 Gout, unspecified; I95.9 Hypotension, unspecified; K57.90 Diverticulosis of intestine, part unspecified, without perforation or abscess without bleeding; R62.7 Adult failure to thrive; Z68.23 Body mass index [BMI] 23.0-23.9, adult; E87.5 Hyperkalemia; D64.9 Anemia, unspecified; F41.8 Other specified anxiety disorders; N18.9 Chronic kidney disease, unspecified; E86.0 Dehydration; I73.9 Peripheral vascular disease, unspecified; Z93.2 Ileostomy status; Z95.5 Presence of coronary angioplasty implant and graft
CPT/HCPCS: 0241U-QW; 36415; 71045-TC-FY; 76775-TC; 80048; 80053; 80061; 81003; 82570; 82962; 83036; 83735; 83880; 84100; 84133; 84134; 84156; 84300; 84443; 84484; 85025; 85027; 85610; 85730; 86850; 86900; 86901; 87086; 93005; 93010; 93306-TC; 97116-GP; 97162-GP; 99285-25; J1644